=== PATIENT | female | born 2005 | race Caucasian/White ===

== ENCOUNTER 2024-02-06 11:21 | Emergency (ER) | payer OTHER ==
[2024-02-06] MEDS: Lidocaine 1% 5 ML VIAL INJECT ONE (12:11)
[2024-02-06] MEDS: Diphtheria,Pertussis(Acell),Tetanus Vaccine 0.5 ML Syringe IM ONE (12:11)
[2024-02-06] MEDS: Ibuprofen 400 MG Tab PO ONE (12:12)
[2024-02-06] MEDS: Bacitracin Oint 1 GM U/D Packet TOP ONE (12:56)
== END 2024-02-06 13:55 | disposition home or self-care (01) ==
LOC: DL.ED 11:21
DX: S61.011A Laceration without foreign body of right thumb without damage to nail, initial encounter (principal); Z23 Encounter for immunization; W26.8XXA Contact with other sharp object(s), not elsewhere classified, initial encounter; Y93.G3 Activity, cooking and baking; Y92.210 Daycare center as the place of occurrence of the external cause; Y99.0 Civilian activity done for income or pay
CPT/HCPCS: 12001; 73130; 81025; 90471; 90715; 99282; 99283; A9270; J3490